=== PATIENT | male | born 1995 | race Caucasian/White ===

== ENCOUNTER 2020-09-05 19:42 | Emergency (ER) | payer BC, OTHER, SELFPAY ==
[2020-09-05] MEDS ORDERED: MULTIVITAMINS 10 ML VIAL (INJ) IV ONE (20:11)
[2020-09-05] MEDS ORDERED: THIAMINE 200 MG/2 ML INJ ONE (20:11)
[2020-09-05] MEDS ORDERED: FOLIC ACID 5 MG/ML VIAL ONE (20:12)
[2020-09-05] MEDS ORDERED: NA CHLORIDE 0.9% 2,000 ML ONE (20:13)
[2020-09-05 20:16] LABS: Protime INR 0.95
[2020-09-05 20:20] LABS: Absolute Lymphocytes (CBC) 2.9 K/uL (0.7-4.9); Basophils % 0.5 % (0-1.3); Hematocrit 44.1 % (39.6-49.0); Lymphocytes % 24.9 % (15.3-44.8); MPV 7.9 fL (7.6-11.3); RBC Red Blood Cell Count 5.12 M/uL (4.33-5.43)
[2020-09-05 20:48] LABS: ALT/SGPT 35 U/L (12-78); AST/SGOT 18 U/L (15-37); Albumin 4.2 g/dL (3.4-5.0); Alkaline Phosphatase 50 U/L (45-117); BUN Blood Urea Nitrogen 12 mg/dL (7-18); Bicarbonate 22 mmol/L (21-32); Bilirubin Direct < 0.1 mg/dL (0-0.2); Bilirubin Total 0.2 mg/dL (0.2-1.0); Glucose Level 87 mg/dL (74-106); Potassium 3.6 mmol/L (3.5-5.1); Protein, Total 7.7 g/dL (6.4-8.2); Sodium Level 144 mmol/L (136-145)
--- NOTE | 2020-09-05 23:44 | EDPHYS ---
Physician Documentation [facility] Name: Beau Myers Age: 24 yrs Sex: Male : 1995 Arrival Date: 09/05/2020 Time: 19:47 Bed 2 Private MD: ED Physician Jaskaran Perez HPI: 09/05 20:36 This 24 yrs old Male presents to ER via EMS with complaints of ALCOHOL jr8 INTOXICATION. 20:36 Onset: The symptoms/episode began/occurred acutely, today. Associated signs and jr8 symptoms: Pertinent positives: vomiting. It is unknown whether or not the patient has had similar symptoms in the past. The patient has not recently seen a physician. EMS called out by patients friend who was with patient at a bar drinking. Stated that he was recently and having a hard time. Was intoxicated to the point where he passed out. Friend told EMS that he caught him. Patient can respond to name only at this time. Historical: - Allergies: 19:50 No Known Allergies; rv - PMHx: 19:50 Unable to obtain; rv - PSHx: 19:50 Unable to obtain; rv - Immunization history:: Adult Immunizations unknown. - Social history:: Smoking status: unknown. ROS: 20:36 Unable to obtain ROS due to altered mental status. jr8 Exam: 20:36 Eyes: Pupils equal round and reactive to light, extra-ocular motions intact. Lids and jr8 lashes normal. Conjunctiva and sclera are non-icteric and not injected. Cornea within normal limits. Periorbital areas with no swelling, redness, or edema. ENT: Nares patent. No nasal discharge, no septal abnormalities noted. Tympanic membranes are normal and external auditory canals are clear. Oropharynx with no redness, swelling, or masses, exudates, or evidence of obstruction, uvula midline. Mucous membranes moist. Neck: Trachea midline, no thyromegaly or masses palpated, and no cervical lymphadenopathy. Supple, full range of motion without nuchal rigidity, or vertebral point tenderness. No Meningismus. 20:36 Respiratory: Lungs have equal breath sounds bilaterally, clear to auscultation and percussion. No rales, rhonchi or wheezes noted. No increased work of breathing, no retractions or nasal flaring. Abdomen/GI: Soft, non-tender, with normal bowel sounds. No distension or tympany. No guarding or rebound. No evidence of tenderness throughout. Skin: Warm, dry with normal turgor. Normal color with no rashes, no lesions, and no evidence of cellulitis. MS/ Extremity: Pulses equal, no cyanosis. Neurovascular intact. Full, normal range of motion. 20:36 Cardiovascular: Rate: tachycardic, Rhythm: regular, Pulses: Pulses are 2+ in right radial artery and left radial artery. Heart sounds: normal, normal S1and S2, no S3 or S4, Edema: is not appreciated. 20:36 Neuro: Orientation: to person, Mentation: able to follow commands, slow to respond, confused, Memory: unable to test, Cranial nerves: unable to test, Cerebellar function: unable to test, Motor: moves all fours, Sensation: no obvious gross deficits, Gait: not tested. seizure activity, is not displayed by the patient, Abnormal movements: there are no abnormal movements. Vital Signs: 19:48 BP 133 / 73; Pulse 130; Resp 23; Temp 98; Pulse Ox 96% on R/A; rv 20:11 BP 141 / 75; Pulse 88; Resp 20; Pulse Ox 100% on 2 lpm NC; rr5 20:30 BP 140 / 76; Pulse 87; Resp 29; Pulse Ox 99% on 2 lpm NC; rv 21:00 BP 135 / 71; Pulse 81; Resp 26; Pulse Ox 100% on 2 lpm NC; rv 21:30 BP 139 / 58; Pulse 90; Resp 29; Pulse Ox 100% on 2 lpm NC; rv 22:00 BP 131 / 61; Pulse 86; Resp 16; Pulse Ox 100% ; rv 23:00 BP 134 / 66; Pulse 81; Resp 15; Pulse Ox 98% on R/A; rv MDM: 19:50 Patient medically screened. 8 23:42 Data reviewed: vital signs, nurses notes, lab test result(s), EKG. Data interpreted: jr8 Pulse oximetry: on room air is 100 %. Interpretation: normal. Counseling: I had a detailed discussion with the patient and/or guardian regarding: the historical points, exam findings, and any diagnostic results supporting the discharge/admit diagnosis, lab results, the need for outpatient follow up, a family practitioner, to return to the emergency department if symptoms worsen or persist or if there are any questions or concerns that arise at home. Response to treatment: the patient's symptoms have resolved after treatment, patient is well hydrated. ED course: Patient up and talking without any altered mentation. Hemodynamically stable. [id number] here to pick him up and watch over him for the night. Will d/c him home to f/u with PCP. Knows to come back if worse . 09/05 19:50 Order name: Acetaminophen [facility] 09/05 19:50 Order name: Basic Metabolic Panel [facility] 09/05 19:50 Order name: CBC with Diff jr8 09/05 19:50 Order name: ETOH Level 8 09/05 19:50 Order name: Hepatic Function [facility] 09/05 19:50 Order name: PT-INR [facility] 09/05 19:50 Order name: Ptt, Activated 8 09/05 19:50 Order name: Salicylate [facility] 09/05 20:00 Order name: Glucose, Ancillary Testing; Complete Time: 20:16 EDMS 09/05 20:21 Order name: Protime (+INR) EDMS 09/05 20:21 Order name: PTT, Activated Partial Thromb EDMS 09/05 20:22 Order name: CBC with Automated Diff EDMS 09/05 20:35 Order name: Alcohol Serum/Plasma EDMS 09/05 19:50 Order name: EKG; Complete Time: 19:51 8 09/05 19:50 Order name: EKG - Nurse/Tech; Complete Time: 20:[address] [facility] 09/05 19:50 Order name: IV Saline Lock; Complete Time: 20:[address] [facility] 09/05 19:50 Order name: Labs collected and sent; Complete Time: 20:[address] [facility] 09/05 20:35 Order name: Salicylates Level EDMS 09/05 20:49 Order name: Basic Metabolic Panel EDMS 09/05 20:49 Order name: Liver (Hepatic) Function EDMS 09/05 20:49 Order name: Acetaminophen Level EDMS Administered Medications: 20:03 Drug: NS 0.9% 1000 ml Route: IV; Rate: 1000 ml; Site: left antecubital; rr5 21:35 Follow up: Response: No adverse reaction; IV Status: Completed infusion; IV Intake: rr5 1000ml 20:03 Drug: Banana Bag - (NS 0.9% 1000 ml, foLIC Acid 1 mg, Thiamine 100 mg, Multivitamin 1 rr5 amp) Route: IV; Rate: calculated rate; Site: left antecubital; 23:39 Follow up: IV Status: Completed infusion; IV Intake: 1000ml rv Disposition: 09/06 04:07 Co-signature as Attending Physician, Jaskaran Perez MD. [email or web address] Disposition: 09/05/20 23:44 Discharged to Home. Impression: Alcohol abuse with intoxication. - Condition is Stable. - Discharge Instructions: Alcohol Intoxication. - Medication Reconciliation Form, Thank You Letter, Antibiotic Education, Prescription Opioid Use form. - Follow up: Private Physician; When: As needed; Reason: Recheck today's complaints, Continuance of care, Re-evaluation by your physician. - Problem is new. - Symptoms are resolved. Signatures: Dispatcher [employer] EDMS Tristen Feliciano PA PA jr8 Rashard Gomez RN RN rv Maxwell Goetz RN RN rr5 Jaskaran Perez MD MD 7 Corrections: (The following items were deleted from the chart) 09/05 23:56 23:44 09/05/2020 23:44 Discharged to Home. Impression: Alcohol abuse with intoxication. rv Condition is Stable. Forms are Medication Reconciliation Form, Thank You Letter, Antibiotic Education, Prescription Opioid Use. Follow up: Private Physician; When: As needed; Reason: Recheck today's complaints, Continuance of care, Re-evaluation by your physician. Problem is new. Symptoms are resolved. jr8
--- NOTE | 2020-09-05 23:44 | ER ---
Nurse's Notes [facility] Name: Beau Myers Age: 24 yrs Sex: Male : 1995 Arrival Date: 09/05/2020 Time: 19:47 Bed 2 Private MD: Diagnosis: Alcohol abuse with intoxication Presentation: 09/05 19:48 Chief complaint: EMS states: PATIENT PASSED OUT IN THE BAR, STAFF CALLED EMS, PATIENT rv SI VOMITING AND COMBATIVE. Coronavirus screen: Client denies travel out of the [place] in the last 14 days. Ebola Screen: No symptoms or risks identified at this time. Initial Sepsis Screen: Does the patient meet any 2 criteria? No. Patient's initial sepsis screen is negative. Does the patient have a suspected source of infection? No. Patient's initial sepsis screen is negative. Risk Assessment: Do you want to hurt yourself or someone else? Patient reports no desire to harm self or others. Onset of symptoms was September 05, 2020. 19:48 Method Of Arrival: EMS: [facility] rv 19:48 Acuity: SHALONDA 2 rv Triage Assessment: 19:50 General: Appears ill, Behavior is drowsy, restless, uncooperative. Pain: Denies pain. rv EENT: No signs and/or symptoms were reported regarding the EENT system. Neuro: Level of Consciousness is confused, lethargic, Oriented to person. Cardiovascular: Patient's skin is warm and dry. Rhythm is sinus tachycardia. Respiratory: Airway is patent Respiratory effort is even, unlabored, Breath sounds are clear bilaterally. Derm: Skin is intact. Historical: - Allergies: 19:50 No Known Allergies; rv - PMHx: 19:50 Unable to obtain; rv - PSHx: 19:50 Unable to obtain; rv - Immunization history:: Adult Immunizations unknown. - Social history:: Smoking status: unknown. Screenin:51 Abuse screen: Denies threats or abuse. Denies injuries from another. Nutritional rv screening: No deficits noted. Tuberculosis screening: No symptoms or risk factors identified. Fall Risk None identified. Assessment: 21:30 Reassessment: Patient appears in no apparent distress at this time. breathing rr5 spontaneously with oxygen at 2 liters via nasal cannula. 21:50 Reassessment: get out on bed pee in the corner of the room. pulled out his IV cannula. rr5 23:38 Reassessment: Patient denies pain at this time. Patient states feeling better. Patient rv states symptoms have improved. Neuro: Level of Consciousness is awake, alert, obeys commands, Oriented to person, place, time, situation. Vital Signs: 19:48 BP 133 / 73; Pulse 130; Resp 23; Temp 98; Pulse Ox 96% on R/A; rv 20:11 BP 141 / 75; Pulse 88; Resp 20; Pulse Ox 100% on 2 lpm NC; rr5 20:30 BP 140 / 76; Pulse 87; Resp 29; Pulse Ox 99% on 2 lpm NC; rv 21:00 BP 135 / 71; Pulse 81; Resp 26; Pulse Ox 100% on 2 lpm NC; rv 21:30 BP 139 / 58; Pulse 90; Resp 29; Pulse Ox 100% on 2 lpm NC; rv 22:00 BP 131 / 61; Pulse 86; Resp 16; Pulse Ox 100% ; rv 23:00 BP 134 / 66; Pulse 81; Resp 15; Pulse Ox 98% on R/A; rv ED Course: 19:47 Patient arrived in ED. rv 19:49 Triage completed. rv 19:50 Tristen Feliciano [facility]. jr8 19:50 Jaskaran Perez MD is Attending Physician. jr8 19:51 Arm band placed on right wrist. Patient placed in the treatment room, on a stretcher, rv Patient notified of wait time. 19:51 Patient has correct armband on for positive identification. teletypesetter monitor on. Pulse rv ox on. NIBP on. 19:51 Maintain EMS IV. Dressing intact. Good blood return noted. Site clean \T\ dry. Gauge \T\ rv site: G18 RAC. 20:10 EKG done, by ED staff, reviewed by Tristen OTERO. rr5 20:11 Maxwell Goetz RN is Primary Nurse. rr5 21:35 No provider procedures requiring assistance completed. rr5 21:51 IV discontinued, intact, bleeding controlled, No redness/swelling at site. Pressure rr5 dressing applied, removed by the patient. Administered Medications: 20:03 Drug: NS 0.9% 1000 ml Route: IV; Rate: 1000 ml; Site: left antecubital; rr5 21:35 Follow up: Response: No adverse reaction; IV Status: Completed infusion; IV Intake: rr5 1000ml 20:03 Drug: Banana Bag - (NS 0.9% 1000 ml, foLIC Acid 1 mg, Thiamine 100 mg, Multivitamin 1 rr5 amp) Route: IV; Rate: calculated rate; Site: left antecubital; 23:39 Follow up: IV Status: Completed infusion; IV Intake: 1000ml rv Intake: 21:35 IV: 1000ml; Total: 1000ml. rr5 23:39 IV: 1000ml; Total: 2000ml. rv Outcome: 23:39 Discharged to home ambulatory, with family. rv 23:39 Condition: improved 23:39 Discharge instructions given to patient, Instructed on discharge instructions, follow up and referral plans. Demonstrated understanding of instructions, follow-up care. 23:44 Discharge ordered by . malachi 23:56 Patient left the ED. rv Signatures: Tristen Feliciano PA PA jr8 Rashard Gomez, RN RN rv Maxwell Goetz RN RN rr5
[2020-09-06 00:39] VITALS: TEMP 98
[2020-09-06 00:42] VITALS: BP 134/66; O2SAT 98
--- NOTE | 2020-09-06 07:23 | EKG ---
Test Date: 2020-09-05 Test Time: 20:08:08 Program Admin: RR MEASUREMENT RESULTS: Intervals: Rate: 86 NJ: 174 QRSD: 92 QT: 368 QTc: 440 Lutz: P: 66 NJ: 174 QRS: 87 T: 24 INTERPRETIVE STATEMENTS: Normal sinus rhythm Normal ECG No previous ECG available for comparison Electronically Signed On 09-06-20 07:21:52 CDT by Jomar Fernandez
== END 2020-09-05 23:56 | disposition home or self-care (01) ==
LOC: ER 19:42
DX: F10.129 Alcohol abuse with intoxication, unspecified (principal); Y90.8 Blood alcohol level of 240 mg/100 ml or more
CPT/HCPCS: 96365; 93005; 85025; 80048; 36415; 80320; 80329 ×2; 85610; 82947; 80076; 85730; 99284; 96366; J3411; J7030